=== PATIENT | female | born 1990 | race Caucasian/White ===

== ENCOUNTER 2017-03-15 17:58 | Emergency (ER) | payer BC, OTHER ==
[2017-03-15] MEDS ORDERED: LORazepam 1 MG TAB PO ONE (18:11)
--- NOTE | 2017-03-15 18:15 | EDPHY ---
H & P Time Seen by Provider: 03/15/17 18:10 HPI/ROS: CHIEF COMPLAINT: Right knee laceration, left foot laceration HISTORY OF PRESENT ILLNESS: 26-year-old female arrives via private vehicle complaining of acute right knee and left foot laceration after she was climbing over a fence and barefoot and the metal edge caught her right knee and her left foot. No glass or other fragmented materials. No foreign body sensation. PRIMARY CARE PROVIDER: REVIEW OF SYSTEMS: A ten point review of systems was performed and is negative with the exception of the items mentioned in the HPI PHYSICAL EXAM (Prior to examination, patient consented to physical exam, hands were washed and my usual and customary physical exam procedures followed) 1) GENERAL: Well-developed, well-nourished, alert and oriented. She appears anxious, hyperventilating. 2) HEAD: Normocephalic 3) HEENT: sclera anicteric 4) LUNGS: Breathing comfortably. 5) SKIN: right knee: 2 cm laceration the left inferior aspect of the knee. Flexor function at the knee is intact with no deficits. This is not appear to involve the joint capsule. No lymphangitic streaking or signs of infection. No foreign body. Left foot: There is a 2.5 cm laceration in the webspace detain the 4th and 5th toes with no flexor extensor deficits, full sensation distally. Smoking Status: Current every day smoker Constitutional: Initial Vital Signs Temperature (C) 36.7 C 03/15/17 18:00 Heart Rate 96 03/15/17 18:00 Respiratory Rate 24 H 03/15/17 18:00 Blood Pressure 136/81 H 03/15/17 18:00 O2 Sat (%) 99 03/15/17 18:00 O2 Delivery Mode Room Air Allergies/Adverse Reactions: phenazopyridine [From Pyridium] Allergy (Unknown, Verified 03/15/17 18:02) Home Medications: Medication Instructions Recorded Amoxicillin Trihydrate [Amoxil 250 250 mg PO Q8 03/15/17 mg CAP (*)] Cephalexin [Keflex] 500 mg PO TID 5 Days cap 03/15/17 Naproxen [Naprosyn] 500 mg PO 03/15/17 MDM/Departure - MDM Procedures: 7:40 p.m.: Procedure: Laceration repair #1 I explained the indications, risks and benefits for both laceration repair and anesthetic administration. Verbal consent was obtained from the patient and parent. The laceration on the right knee was anesthetized using 0.5% bupivicaine with epinephrine . After anesthetic administered the patient was observed for a period of time and had no apparent adverse effects. The wound was cleaned, prepped, draped in normal sterile fashion and explored to its base. No foreign body seen, no foreign bodies palpated. There were no deep structures involved. Doubt traumatic arthrotomy of the right knee. No tendon injury was identified. The wound was repaired with 4 simple interrupted 4 0 Prolene sutures. The wound repair was simple. The procedure was performed by myself. Patient has been informed that scarring will occur, although efforts have been made to minimize this. Procedure: Laceration repair #2 I explained the indications, risks and benefits for both laceration repair and anesthetic administration. Verbal consent was obtained from the patient . The laceration on the left foot between the 4th and 5th toe spaces was anesthetized using 0.5% bupivicaine without epinephrine . After anesthetic administered the patient was observed for a period of time and had no apparent adverse effects. The wound was cleaned, prepped, draped in normal sterile fashion and explored to its base. No foreign body seen, no foreign bodies palpated. There were no deep structures involved. No tendon injury was identified. The wound was repaired with 5 simple interrupted 4 0 Prolene sutures. The wound repair was simple. The procedure was performed by myself. Patient has been informed that scarring will occur, although efforts have been made to minimize this. Medications Given: Discontinued Medications Lorazepam (Ativan) 1 mg PO EDNOW ONE Stop: 03/15/17 18:12 Last Admin: 03/15/17 18:14 Dose: 1 mg Lorazepam (Ativan Injection) 1 mg NASAL EDNOW ONE Stop: 03/15/17 18:40 Last Admin: 03/15/17 18:45 Dose: 1 mg Tetracaine/Epinephrine/Lidocaine (Let Gel Topical) 1 ea TP EDNOW ONE Stop: 03/15/17 18:37 Last Admin: 03/15/17 18:38 Dose: 1 ea ED Course/Re-evaluation: 6:13 p.m.: Patient has laceration to her right knee and left foot wound. She is quite anxious at this time, will administer oral Ativan prior to further interventions. 6:39 p.m.: Patient remains anxious after oral Ativan I am unable to complete examination of her right knee and left toe laceration. She declines and he intramuscular injection. Intranasal Ativan will be administered and let will be applied 7:20 p.m.: Patient allows me to further examine the area allows me to administer injectable anesthetic. - Depart Disposition: Home, Routine, Self-Care Clinical Impression: Laceration of right knee, Laceration of left foot Condition: Good Instructions: Laceration (ED), Care For Your Stitches (ED), Cephalexin (By mouth) Additional Instructions: Return to the ER if you develop redness, swelling, discharge, warmth to the wound, red streaks going up your leg, or any other symptoms that concern you. Prescriptions: Cephalexin [Keflex] 500 mg PO TID 5 Days cap Referrals: Return, to the ER in 14 days for suture removal [Other] - 03/29/17
[2017-03-15] MEDS ORDERED: LET GEL TOPICAL 1 EA SYR TP ONE ×2 (18:36)
[2017-03-15] MEDS ORDERED: LORazepam 2 MG/ML INJ NASAL ONE (18:39)
[2017-03-15] MEDS ORDERED: CEPHALEXIN 500MG PREPACK#4 BTL TAKEHOME ONE (19:54)
[2017-03-15 20:01] VITALS: O2SAT 98
[2017-03-15 20:02] VITALS: BP 112/78; PULSE 102; RESP 20; TEMP 97.3
== END 2017-03-15 20:03 | disposition home or self-care (01) ==
PROC: 0HQKXZZ Repair Right Lower Leg Skin, External Approach (ICD-10-PCS; principal; 2017-03-15)
DX: S81.011A Laceration without foreign body, right knee, initial encounter (principal); S91.312A Laceration without foreign body, left foot, initial encounter; F17.200 Nicotine dependence, unspecified, uncomplicated; W26.8XXA Contact with other sharp object(s), not elsewhere classified, initial encounter; Y93.39 Activity, other involving climbing, rappelling and jumping off
CPT/HCPCS: J2060

== ENCOUNTER 2017-03-19 07:44 | Emergency (ER) | payer BC ==
[2017-03-19 07:58] VITALS: BP 127/77; PULSE 78; RESP 16; TEMP 99; O2SAT 99
[2017-03-19] MEDS ORDERED: TDAP ADULT 0.5 ML INJ (BOOSTRIX) IM ONE ×2 (08:06→08:07)
--- NOTE | 2017-03-19 08:14 | EDPHY ---
H & P Time Seen by Provider: 03/19/17 07:55 HPI/ROS: HPI Foot laceration, concerned about tetanus. 26-year-old female by private vehicle. She sustained a laceration to her left foot webspace between the 4th and 5th toes on March 15. This was sutured. She was prescribed cephalexin as well as naproxen for pain control. She is concerned because she says she has not had a tetanus shot in over 10 years and is requesting this. She also states that she thinks the wound is red and becoming infected. She has not had a fever. No other complaints. ROS: Constitutional: No fever, no chills. No weakness. Musculoskeletal: No back pain. No neck pain. No myalgias or arthralgias. Skin: No rashes. As above. Neurological: No headache. No focal weakness or altered sensation. Past medical history: Social history: Physical Exam: General Appearance: Alert, anxious. This patient is responding to questions appropriately and in full sentences. This patient appears well-hydrated and well-nourished. Neurological: Motor sensory function is grossly intact. Cranial nerves are normal. Gait is normal. Skin: Warm and dry, no rashes. Left foot exam: Significant for a well sutured 2 cm laceration involving the webspace between the 4th and 5th toe. The wound is clean dry and intact. There is no significant erythema or edema to suggest infection. No ecchymosis. The left foot is neurovascularly intact. Extremities are symmetrical. All joints range without pain or impingement. Psychiatric: No agitation. No depression. Database: EKG: Imaging: Procedures: Emergency department course: Patient's vital signs reviewed and are normal. I see no evidence of infection/ cellulitis/abscess formation involving her left foot wound. She was given a Tdap vaccination. She has been instructed to follow up with her primary care physician in 2 days for recheck. She endorses this plan. Return to emergency department precautions reviewed. All of her questions were answered. She was discharged in good condition. Differential Diagnosis: The differential diagnosis on this patient includes but is not limited to requesting tetanus vaccination, wound check. Wound infection, significant neurovascular injury, tetanus unlikely. This represents a partial list of diagnoses considered. These considerations are based on history, physical exam , past history, reassessment and diagnostic testing. Smoking Status: Current every day smoker Constitutional: Initial Vital Signs Temperature (C) 37.2 C 03/19/17 07:48 Heart Rate 78 03/19/17 07:48 Respiratory Rate 16 03/19/17 07:48 Blood Pressure 127/77 H 03/19/17 07:48 O2 Sat (%) 99 03/19/17 07:48 O2 Delivery Mode Room Air Allergies/Adverse Reactions: phenazopyridine [From Pyridium] Allergy (Unknown, Verified 03/19/17 07:47) Home Medications: Medication Instructions Recorded Cephalexin [Keflex] 500 mg PO TID 5 Days cap 03/15/17 Naproxen [Naprosyn] 500 mg PO 03/15/17 Departure - Departure Disposition: Home, Routine, Self-Care Clinical Impression: Visit for wound check, Tetanus vaccination request Condition: Good Instructions: Laceration (ED), Care For Your Stitches (ED) Additional Instructions: Read and follow provided instructions. Follow-up with your primary care physician in 2 days for wound check. Return to the emergency department for redness or swelling involving your left foot, fever, drainage of pus from your laceration wound or other serious concerns. Referrals: NONE *PRIMARY CARE P,. [Primary Care Provider] - As per Instructions
== END 2017-03-19 08:20 | disposition home or self-care (01) ==
DX: Z48.01 Encounter for change or removal of surgical wound dressing (principal); F17.200 Nicotine dependence, unspecified, uncomplicated; Z23 Encounter for immunization; X58.XXXA Exposure to other specified factors, initial encounter